=== PATIENT | male | born 1940 | race Caucasian/White ===

== ENCOUNTER → 2017-09-27 | Outpatient (CLI) | payer MEDICARE, OTHER ==
[2017-09-27 17:36] LABS: PLATELET COUNT, AUTOMATED 201 10^3/uL (150-450)
[2017-09-27 19:24] LABS: ERYTHROCYTE SEDIMENTATION RATE 44 mm/hr (0-20)
[2017-10-04 00:06] LABS: SJOGREN'S ANTI SS-A <0.2 AI (0.0-0.9); SJOGREN'S ANTI SS-B <0.2 AI (0.0-0.9)
== END ==
LOC: M SMT 11:58
PROVIDERS: ATTEND Physician Assistant
DX: R04.2 Hemoptysis (principal)

== ENCOUNTER 2017-11-03 08:08 | Day surgery (SDC) | payer MEDICARE, OTHER ==
[2017-11-03] MEDS: LR 1,000 ML IV ×2 (08:50)
[2017-11-03] MEDS ORDERED: PROPOFOL 200 MG/20 ML VIAL As Ordered ×2 (10:48)
[2017-11-03] MEDS ORDERED: ROCURONIUM BROMIDE 50 MG/5 ML VIAL As Ordered ×2 (10:48)
[2017-11-03] MEDS ORDERED: LIDOCAINE 2% INJ 100 MG/5 ML SDV (FOR ANES.) As Ordered ×2 (10:48)
[2017-11-03] MEDS ORDERED: fentaNYL 100 MCG/2 ML INJECTION (J3010) As Ordered ×2 (10:49)
[2017-11-03] MEDS ORDERED: MIDAZOLAM INJ 2 MG/2 ML VIAL (J2250) As Ordered ×2 (10:49)
[2017-11-03] MEDS: CETACAINE SPRAY 5GM As Ordered ×2 (11:23)
[2017-11-03] MEDS: LIDOCAINE 1% SDV INJ 30 ML VIAL As Ordered ×2 (11:23)
[2017-11-03] MEDS: LIDOCAINE VISCOUS 2% SOLN 15ML UDC As Ordered ×2 (11:23)
[2017-11-03] MEDS: EPINEPHrine 1MG/10ML SYRINGE 1.5IN As Ordered ×2 (11:24)
[2017-11-03] MEDS ORDERED: ONDANSETRON 4MG/2ML VIAL (J2405) As Ordered ×2 (11:28)
[2017-11-03] MEDS ORDERED: GLYCOPYRROLATE INJ 0.2 MG/ML 2 ML VIAL As Ordered ×4 (11:28)
[2017-11-03] MEDS ORDERED: NEOSTIGMINE 10 MG/10 ML VIAL (J2710) As Ordered ×2 (11:28)
[2017-11-03] MEDS ORDERED: ONDANSETRON 4MG/2ML VIAL (J2405) IV ×2 (12:15)
[2017-11-03] MEDS ORDERED: LR 1,000 ML IV ×2 (12:15)
[2017-11-03] MEDS ORDERED: fentaNYL 100 MCG/2 ML INJECTION (J3010) IV ×2 (12:15)
[2017-11-03 13:46] LABS: APPEARANCE CLOUDY (CLEAR); COLOR RED (COLORLESS); SOURCE LEFT LOWER LOBE
[2017-11-03 13:47] LABS: BAL DIFF IF INDICATED? YES (NO)
[2017-11-03 14:26] LABS: MONOCYTES/MACROPHAGES, BAL 7 %
[2017-11-03 14:27] LABS: CC BAL DIFF EXAM CYTOCENTRIFUGE
== END 2017-11-03 13:22 | disposition home or self-care (01) ==
LOC: M SDC 08:08
DX: R91.8 Other nonspecific abnormal finding of lung field (principal); J47.9 Bronchiectasis, uncomplicated; R04.2 Hemoptysis; I10 Essential (primary) hypertension; Z79.899 Other long term (current) drug therapy; Z88.0 Allergy status to penicillin
CPT/HCPCS: 31624

== ENCOUNTER → 2021-09-03 | Outpatient (CLI) | payer MEDICARE, BC ==
[~2021-09-03] MED LIST: CLIN150C17 PO; HUMI40KI2; PIND10TA; ZYLO300T6
== END ==
LOC: M SLEEP 20:00
PROVIDERS: ATTEND Physician Assistant
DX: R40.0 Somnolence (principal); R06.83 Snoring